=== PATIENT | female | born 1945 | race Caucasian/White ===

== ENCOUNTER 2022-09-12 12:16 | Inpatient (IN) | payer MEDICARE, OTHER, MEDICAID ==
[~2022-09-12] VITALS: Ht 165.1 cm; Wt 50.9 kg
[~2022-09-12 12:16] MED LIST: ACET-2615 PO; ALBU18HF2 INH; LACT1CAP65 PO; LEVO125T PO; LORA10TA7 PO; OMEP40CA21 PO; SERT25TA PO
[2022-09-12 13:25] LABS: BASOPHILS % (AUTO) 0.1 % (0-1); EOSINOPHILS % (AUTO) 0 % (0-6); HEMATOCRIT 33.7 % (35.0-45.0); HEMOGLOBIN 10.9 g/dl (12.0-16.0); LYMPHOCYTES # (AUTO) 1.2 X10'3 (1.1-4.8); LYMPHOCYTES % (AUTO) 9.6 % (21-51); MEAN CORPUSCULAR HEMOGLOBIN 29.2 PG (27.0-31.0); MEAN CORPUSCULAR HGB CONC 32.3 g/dL (33.0-36.5); MEAN CORPUSCULAR VOLUME 90.4 FL (78-98); MEAN PLATELET VOLUME 7.1 FL (7.4-10.4); MONOCYTES # (AUTO) 0.7 X10'3 (0-0.9); MONOCYTES % (AUTO) 5.7 % (2-12); NEUTROPHILS # (AUTO) 10.7 X10'3 (1.8-7.7); NEUTROPHILS % (AUTO) 84.6 % (42-75); PLATELET COUNT 448 X10'3 (140-440); RED BLOOD COUNT 3.73 X10'6 (4.20-5.60); RED CELL DISTRIBUTION WIDTH 14.1 % (11.5-14.5); WHITE BLOOD COUNT 12.7 X10'3 (4.5-11.0)
[2022-09-12 13:34] LABS: ALANINE AMINOTRANSFERASE 12 U/L (12-78); ALBUMIN 2.2 G/DL (3.4-5.0); ALBUMIN/GLOBULIN RATIO 0.7 (1.1-1.5); ALKALINE PHOSPHATASE 76 IU/L (46-116); ANION GAP 6 (8-16); ASPARTATE AMINO TRANSFERASE 17 U/L (10-37); BILIRUBIN,TOTAL 0.3 MG/DL (0.1-1.0); BLOOD UREA NITROGEN 13 MG/DL (7-18); BUN/CREATININE RATIO 17.1 (6.6-38.0); CALCIUM 7.8 MG/DL (8.5-10.1); CHLORIDE 100 MMOL/L (99-107); CREATININE 0.76 MG/DL (0.40-0.90); GLUCOSE 104 MG/DL (70-104); LIPASE < 50 U/L (73-393); POTASSIUM 3.2 MMOL/L (3.5-5.1); SODIUM 134 MMOL/L (135-145); TOTAL CARBON DIOXIDE 28.2 MMOL/L (24-32); TOTAL PROTEIN 5.3 G/DL (6.4-8.2); eGFR 74 ML/MIN
[2022-09-12] MEDS ORDERED: vancomycin 250MG/10ML UD oral solution 10ML BOTTLE PO STA (14:33)
[2022-09-12] MEDS ORDERED: normal saline 1000ML IV soln IV ONE (14:35)
[2022-09-12] MEDS ORDERED: vancomycin 125mg/5ml ORAL solution 5ml UD oral syringe PO STA (14:38)
[2022-09-12 16:18] LABS: CLARITY,URINE CLOUDY (Clear); COLOR,URINE YELLOW (Yellow); GLUCOSE, URINE NEGATIVE (Neg); KETONES,URINE NEGATIVE (Neg); LEUKOCYTE ESTERASE ,URINE TRACE (Neg); NITRITES, URINE POSITIVE (Neg); OCCULT BLOOD,URINE NEGATIVE (Neg); PROTEIN,URINE NEGATIVE (Neg); UROBILINOGEN,URINE 0.2 E.U/dL (0.2-1.0)
[2022-09-12 16:27] LABS: UA COLLECTION TYPE CLN CATCH MIDSTREAM
[2022-09-12 16:28] LABS: MUCUS STRANDS MODERATE /LPF (Neg); SQUAMOUS EPITHELIAL CELL,UR MODERATE /LPF (FEW)
[2022-09-12 16:29] LABS: BACTERIA,URINE 4+ /HPF (Neg)
[2022-09-12 16:30] LABS: RBC,URINE 0-2 /HPF (0-2); WBC CLUMPS,URINE MODERATE /HPF (NEGATIVE)
[2022-09-12] MEDS ORDERED: morphine 4 MG/ML inj SYRINge IV ONE (17:05)
[2022-09-12] MEDS ORDERED: CefTRIAXone 2gm/D5W 50ml BAG 50 ML IV ONE (17:05)
[2022-09-12] MEDS ORDERED: acetaminophen 325mg tablet PO PRN (17:10)
[2022-09-12] MEDS ORDERED: magnesium 4gm in 100ml NS 100 ML IV PRN (17:10)
[2022-09-12] MEDS ORDERED: potassium Cl 20 mEq SR tablet PO PRN (17:10)
[2022-09-12] MEDS ORDERED: potassium Cl 40MEQ/1/2NS 520ml 520 ML IV PRN (17:10)
[2022-09-12] MEDS ORDERED: magnesium Cl slow-release 64mg tablet PO PRN (17:10)
[2022-09-12] MEDS: normal saline 1000ml 1,000 ML IV SCH (17:20)
[2022-09-12] MEDS ORDERED: CefTRIAXone/D5W-Rocephin 1gm 50 ML IV SCH (17:20)
[2022-09-12] MEDS ORDERED: ACET-2778 PO (17:29)
[2022-09-12] MEDS ORDERED: DICL100G30 TOP (17:29)
[2022-09-12] MEDS: ondansetron/PF 4mg/2ml inj IV PRN (17:45)
[2022-09-12] MEDS ORDERED: iohexol 300mg/ml 100ml inj. ONE (17:52)
[2022-09-12] MEDS: K and/or MAG REPLACEMENT MC SCH (20:01)
[2022-09-12] MEDS: vancomycin 125mg/5ml ORAL solution 5ml UD oral syringe PO SCH (20:35)
[2022-09-13] MEDS: vancomycin 125mg/5ml ORAL solution 5ml UD oral syringe PO SCH ×4 (02:50→21:02)
[2022-09-13] MEDS: normal saline 1000ml 1,000 ML IV SCH ×2 (03:20→13:07)
[2022-09-13] MEDS ORDERED: acetaminophen 325mg tablet PO ONE (04:25)
[2022-09-13 07:14] LABS: BASOPHILS % (AUTO) 0.1 % (0-1); EOSINOPHILS % (AUTO) 0.2 % (0-6); HEMATOCRIT 27.4 % (35.0-45.0); HEMOGLOBIN 9.4 g/dl (12.0-16.0); LYMPHOCYTES # (AUTO) 1.1 X10'3 (1.1-4.8); LYMPHOCYTES % (AUTO) 9.9 % (21-51); MEAN CORPUSCULAR HEMOGLOBIN 30.7 PG (27.0-31.0); MEAN CORPUSCULAR HGB CONC 34.2 g/dL (33.0-36.5); MEAN CORPUSCULAR VOLUME 89.6 FL (78-98); MEAN PLATELET VOLUME 7.3 FL (7.4-10.4); MONOCYTES # (AUTO) 0.9 X10'3 (0-0.9); MONOCYTES % (AUTO) 7.9 % (2-12); NEUTROPHILS % (AUTO) 81.9 % (42-75); PLATELET COUNT 339 X10'3 (140-440); RED BLOOD COUNT 3.06 X10'6 (4.20-5.60); RED CELL DISTRIBUTION WIDTH 13.9 % (11.5-14.5)
[2022-09-13] MEDS: ondansetron/PF 4mg/2ml inj IV PRN (07:41)
--- NOTE | 2022-09-13 07:45 | NUR ---
Paged Dr. Garcia requesting PRN pain meds for pt. MESSAGE: ED Bed 10 is requesting stronger PRN pain medication states tylenol not helpful. ex [id number]
[2022-09-13] MEDS: K and/or MAG REPLACEMENT MC SCH ×2 (08:00→21:01)
[2022-09-13 08:07] LABS: ALBUMIN 1.7 G/DL (3.4-5.0); ANION GAP 8 (8-16); BLOOD UREA NITROGEN 11 MG/DL (7-18); BUN/CREATININE RATIO 19.6 (6.6-38.0); CALCIUM 7.2 MG/DL (8.5-10.1); CHLORIDE 103 MMOL/L (99-107); CREATININE 0.56 MG/DL (0.40-0.90); GLUCOSE 88 MG/DL (70-104); MAGNESIUM 1.8 MG/DL (1.5-2.4); SODIUM 135 MMOL/L (135-145); TOTAL CARBON DIOXIDE 24.3 MMOL/L (24-32); eGFR > 90 ML/MIN
--- NOTE | 2022-09-13 08:15 | NUR ---
CRITICAL RESULT RECEIVED FROM GUSTAVO IN LAB. POTASSIUM 3.0 PRN MED ADMINISTERED
[2022-09-13] MEDS: potassium Cl 20 mEq SR tablet PO PRN ×3 (08:28→17:17)
[2022-09-13 11:33] LABS: C DIFF SPECIMEN=DIARRHEA? ACCEPTABLE; C DIFFICILE TOXINS A&B POSITIVE (Neg)
--- NOTE | 2022-09-13 11:35 | NUR ---
Paged with critical lab result: C.diff positive. Awaiting response. PAGER ID: [phone] MESSAGE: ED Bed 10 received C. diff positive lab result. Pt is also requesting PRN pain medications other than Tylenol ex [phone]
[2022-09-13] MEDS: HYDROcodone/acetaminophen 5mg/325mg tablet PO PRN (13:06)
[2022-09-13] MEDS ORDERED: CefTRIAXone/D5W-Rocephin 1gm 50 ML IV SCH (17:00)
[2022-09-13 23:35] VITALS: BP 135/65
[2022-09-14] MEDS: normal saline 1000ml 1,000 ML IV SCH ×2 (00:09→09:18)
[2022-09-14 02:00] VITALS: BP 121/70
[2022-09-14] MEDS: vancomycin 125mg/5ml ORAL solution 5ml UD oral syringe PO SCH ×2 (02:21→08:00)
[2022-09-14] MEDS: HYDROcodone/acetaminophen 5mg/325mg tablet PO PRN ×2 (02:28→09:17)
[2022-09-14 06:18] LABS: BASOPHILS % (AUTO) 0 % (0-1); EOSINOPHILS # (AUTO) 0.1 X10'3 (0-0.9); HEMATOCRIT 28.5 % (35.0-45.0); HEMOGLOBIN 9.4 g/dl (12.0-16.0); LYMPHOCYTES # (AUTO) 1.1 X10'3 (1.1-4.8); LYMPHOCYTES % (AUTO) 15.2 % (21-51); MEAN CORPUSCULAR HEMOGLOBIN 29.7 PG (27.0-31.0); MEAN CORPUSCULAR HGB CONC 32.9 g/dL (33.0-36.5); MEAN CORPUSCULAR VOLUME 90.1 FL (78-98); MEAN PLATELET VOLUME 7.8 FL (7.4-10.4); MONOCYTES # (AUTO) 0.7 X10'3 (0-0.9); MONOCYTES % (AUTO) 9.7 % (2-12); NEUTROPHILS # (AUTO) 5.6 X10'3 (1.8-7.7); NEUTROPHILS % (AUTO) 74.1 % (42-75); PLATELET COUNT 352 X10'3 (140-440); RED BLOOD COUNT 3.16 X10'6 (4.20-5.60); WHITE BLOOD COUNT 7.5 X10'3 (4.5-11.0)
[2022-09-14 06:28] LABS: ALBUMIN 1.7 G/DL (3.4-5.0); ANION GAP 6 (8-16); BLOOD UREA NITROGEN 8 MG/DL (7-18); BUN/CREATININE RATIO 16.7 (6.6-38.0); CALCIUM 7.6 MG/DL (8.5-10.1); CHLORIDE 103 MMOL/L (99-107); CREATININE 0.48 MG/DL (0.40-0.90); GLUCOSE 95 MG/DL (70-104); MAGNESIUM 1.7 MG/DL (1.5-2.4); POTASSIUM 4.3 MMOL/L (3.5-5.1); SODIUM 133 MMOL/L (135-145); eGFR > 90 ML/MIN
--- NOTE | 2022-09-14 06:55 | NUR ---
Problems reprioritized. Patient report given, questions answered & plan of care reviewed with Princess VUONG.
[2022-09-14 07:00] VITALS: BP 125/65
[2022-09-14] MEDS: K and/or MAG REPLACEMENT MC SCH (07:35)
[2022-09-14] MEDS ORDERED: CIPR-202 PO (10:14)
[2022-09-14] MEDS ORDERED: VANC5VIA PO ×2 (10:14)
--- NOTE | 2022-09-14 12:33 | NUR ---
PT ASKED TO REPLACE LIQUID VANCO WITH PILL FORM. PAGED HOSPITALIST. "DR. CORONADO, PT [facility] ROOM 3021 REQUESTS TO CHANGE VANCO LIQUID FORM TO PILLS. THANK YOU."
--- NOTE | 2022-09-14 12:55 | NUR ---
DR. CORONADO CALLED BACK AND APPROVED CHANGE TO VANCO 125MG TABS INSTEAD OD SUSPENSION. RX CALLED TO PT'S [facility].
--- NOTE | 2022-09-14 13:13 | NUR ---
PT'S DAUGHTER NOTIFIED ABOUT DISCHARGE AND WILL BE ON HER WAY. SHE SAID THAT SHE ALREADY DISCUSSED WITH DR. CORONADO DIAGNOSTIC FINDINGS.
[2022-09-14 14:00] VITALS: BP 111/61
== END 2022-09-14 14:58 | disposition home or self-care (01) | DRG 872 ==
LOC: ER 12:17 → ED HOLD 17:16 → PCU 3S 09-13 23:20
PROVIDERS: ADMIT Internal Medicine; ATTEND Internal Medicine
PROC: BW211ZZ Computerized Tomography (CT Scan) of Abdomen and Pelvis using Low Osmolar Contrast (ICD-10-PCS; principal; 2022-09-12)
DX: A41.9 Sepsis, unspecified organism (principal); N39.0 Urinary tract infection, site not specified; A04.72 Enterocolitis due to Clostridium difficile, not specified as recurrent; E44.0 Moderate protein-calorie malnutrition; Z68.1 Body mass index [BMI] 19.9 or less, adult; E87.1 Hypo-osmolality and hyponatremia; B96.20 Unspecified Escherichia coli [E. coli] as the cause of diseases classified elsewhere; E03.9 Hypothyroidism, unspecified; J43.9 Emphysema, unspecified; K21.9 Gastro-esophageal reflux disease without esophagitis; K82.8 Other specified diseases of gallbladder; F41.9 Anxiety disorder, unspecified; G89.29 Other chronic pain; R94.8 Abnormal results of function studies of other organs and systems; Z86.19 Personal history of other infectious and parasitic diseases; Z79.899 Other long term (current) drug therapy
CPT/HCPCS: 36415; 74176; 80048; 80053; 81001; 83605; 83690; 83735; 84132; 84145; 85025; 87040; 87077; 87081; 87088; 87186; 87324; 87449; 96360; 97116; 97161; 99285; G0378; J0696; J2270; J2405; J3490; J7030; Q9967